=== PATIENT | male | born 2005 | race African-American/Black ===

== ENCOUNTER 2024-01-26 12:36 | Emergency (ER) | payer SELFPAY ==
--- NOTE | ~2024-01-26 | XR_ITS ---
XR chest 2V Ordering provider: Andree Culp PA-C History: 18 years Male with . asthma, SOB, cough ,congestion ,productive cough . Comparison: None. FINDINGS: MEDIASTINUM: The cardiac silhouette is not enlarged. LUNGS: No infiltrates, effusions or pneumothorax. OTHER: No free air under the diaphragm. IMPRESSION: No acute cardiopulmonary pathology. Reviewed, dictated and finalized at location [facility]. [facility]
[2024-01-26 12:46] VITALS: BP 123/64; PULSE 93; RESP 16; TEMP 36.8; O2SAT 94
--- NOTE | 2024-01-26 13:56 | ED_ITS ---
HPI - SOB/Dyspnea General Chief Complaint: Shortness of Breath/Dyspnea Stated Complaint: asthma Time Seen by Provider: 01/26/24 13:56 Focused HPI: This is a 18 year old male that presents to the ER for asthma exacerbation. Reports since Thursday he has had a cold. Reports his shortness of breath is worse with exertion. Reports cough, congestion. He takes Qvar daily. He ran out of his Albuterol inhaler. Denies fevers. GENERAL: Well-appearing, well-nourished, and in no acute distress. HEAD: Normocephalic, atraumatic. CHEST: No respiratory distress. Diffuse expiratory wheezing HEART: Regular rate and rhythm.? NEURO: ?Alert and oriented x3. Patient screened in triage and initial orders placed.? ?Additional care and disposition to be based upon?diagnostic testing and treatment. Related Data Allergies Allergy/AdvReac Type Severity Reaction Status Date / Time peanut Allergy Mild Anaphylaxis Verified 01/26/24 12:51 PEANUT BUTTER Allergy Mild Anaphylaxis Uncoded 01/26/24 12:51 Sesame Seed Allergy Mild Anaphylaxis Uncoded 01/26/24 12:51 Review of Systems Review of Systems: CONSTITUTIONAL: Denies fever ENT: Reports congestion RESPIRATORY: Reports cough and dyspnea. All systems reviewed & are unremarkable except as noted in HPI and below PMFSH Past Medical History Medical History (Updated 01/26/24 @ 16:41 by Andree Culp PA-C) History of asthma Social History Social History (Updated 01/26/24 @ 16:41 by Andree Culp PA-C) Substance use: never Exam Narrative: GENERAL: Well-appearing, well-nourished, and in no acute distress. HEAD: Normocephalic, atraumatic. EYES: EOMI. CHEST: No respiratory distress. Diffuse, expiratory wheezing. No rales or rhonchi HEART: Regular rate and rhythm. No murmur heard. Normal peripheral pulses. EXTREMITIES: Normal range of motion. No edema. SKIN: Warm, dry, no rash. NEURO: No focal deficits. Alert and oriented x3. PSYCH: Normal mood and affect Course Course Emergency Course: Patient and family updated on workup. Patient is opened up, although does still have some wheezing. He reports feeling a lot better. I did offer another nebulizer treatment, he declines at this time. Reports he will do 1 when he gets home Vital Signs Vital signs: Vital Signs Temperature 98.2 F 01/26/24 12:46 Pulse Rate 93 01/26/24 12:46 Respiratory Rate 16 01/26/24 12:46 Blood Pressure 123/64 01/26/24 12:46 Pulse Oximetry 94 01/26/24 12:46 Oxygen Delivery Room Air 01/26/24 12:46 Temperature 98.1 F 01/26/24 16:20 Pulse Rate 92 01/26/24 16:20 Respiratory Rate 16 01/26/24 16:20 Blood Pressure 123/75 01/26/24 16:20 Pulse Oximetry 97 01/26/24 16:20 Oxygen Delivery Room Air 01/26/24 14:13 MDM - SOB/Dyspnea MDM Narrative Medical decision making narrative: Patient presents to the emergency department for shortness of breath and wheezing. History of asthma. Also reporting viral symptoms. COVID, influenza and RSV screens are negative. Oxygen saturation is normal on room air. Patient was wheezing and diminished initially. Given nebulizer treatment with improvement. Chest x-ray without acute cardiopulmonary abnormality. After nebulizer treatment patient was opened up, although did still have wheezing. He reports feeling a lot better. I did offer another nebulizer treatment, he declines at this time. Reports he will do 1 when he gets home. They were given warnings to return to the ER Differential Diagnosis Differential diagnosis: Likely community acquired pneumonia and asthma with exacerbation Lab Data Attestation: I reviewed the patient's lab results. Labs: Lab Results 01/26/24 Range/Units 14:07 Influenza A (RT-PCR) Negative (Negative) Influenza B (RT-PCR) Negative (Negative) RSV (RT-PCR) Negative (Negative) SARS-CoV-2 RNA (RT-PCR) Negative (Negative) Imaging Data Radiologist's impression: ITS Impressions Chest X-Ray 01/26/24 14:35 IMPRESSION: No acute cardiopulmonary pathology. Critical Care Time Critical Care Time Critical Care Time: No Discharge Plan Discharge Clinical Impression: Asthma exacerbation Qualifiers: Asthma severity: unspecified severity Asthma persistence: persistent Qualified Code(s): J45.901 - Unspecified asthma with (acute) exacerbation Patient Disposition: Home, Self-Care Condition: Improved Instructions: Asthma (ED) Additional Instructions: Return to the emergency department for worsening symptoms, or any other concerns Remain well-hydrated, get plenty of rest. Take Tylenol or Motrin [id number] for pain as needed. Flonase for nasal congestion. Zyrtec for runny nose. Lozenges or Chloraseptic spray for sore throat. Albuterol every 4-6 hours as needed for shortness of breath or wheezing. Continue steroid daily Follow up with primary care doctor Patient Language: Citizen Of [place] Prescriptions: New albuterol sulfate 90 mcg/actuation HFA aerosol inhaler 2 puff inhalation QID PRN (Reason: shortness of breath or wheezing) Qty: 8.5 0RF prednisone 20 mg tablet 60 mg PO DAILY 4 Days Qty: 12 0RF albuterol sulfate 2.5 mg/0.5 mL solution for nebulization 5 mg inhalation QID PRN (Reason: shortness of breath or wheezing) Qty: 30 0RF Follow-up/Referrals: PHYSICIAN,SUPERVISORY GEOGRAPHER [Non-Staff] -
[2024-01-26 14:07] VITALS: PULSE 93; RESP 18
[2024-01-26] MEDS: IPRATROPIUM 0.5 MG/ALBUTEROL SULFATE 2.5 MG AMPUL.NEB 3 ML INHALATION (14:07)
[2024-01-26 14:13] VITALS: PULSE 94; RESP 18; O2SAT 98
[2024-01-26] MEDS: predniSONE 20 MG TABLET 60 MG PO (14:17)
--- NOTE | 2024-01-26 16:15 | PC.NURSE ---
Spoke with Lab concerning COVID/Flu/RSV results. Per lab test had to be reran in lab 12 minutes left
[2024-01-26 16:20] VITALS: BP 123/75; PULSE 92; RESP 16; TEMP 36.7; O2SAT 97
[2024-01-26 16:27] LABS: Influenza A QL RT-PCR Negative (Negative); Influenza B QL RT-PCR Negative (Negative); RSV RNA, RT-PCR Negative (Negative); SARS-CoV-2 RNA PCR Negative (Negative)
== END 2024-01-26 16:48 | disposition home or self-care (01) ==
LOC: ANHED 16:40
PROVIDERS: Emergency Provider Physician Assistant
DX: J45.901 Unspecified asthma with (acute) exacerbation (principal); Z20.822 Contact with and (suspected) exposure to COVID-19
CPT/HCPCS: 71046; 87637; 94640; 99283; J7512